=== PATIENT | female | born 1960 | race Caucasian/White ===

== ENCOUNTER 2019-12-08 16:04 | Emergency (ER) | payer OTHER ==
[~2019-12-08] VITALS: Ht 160 cm; Wt 112.9 kg
[2019-12-08 16:10] VITALS: BP 210/114; Ht 160 cm; Wt 112.9 kg
== END 2019-12-08 18:05 | disposition home or self-care (01) ==
LOC: ED 16:04
DX: S52.501A Unspecified fracture of the lower end of right radius, initial encounter for closed fracture (principal); S52.601A Unspecified fracture of lower end of right ulna, initial encounter for closed fracture; S01.531A Puncture wound without foreign body of lip, initial encounter; W01.0XXA Fall on same level from slipping, tripping and stumbling without subsequent striking against object, initial encounter; Y93.89 Activity, other specified; Y92.89 Other specified places as the place of occurrence of the external cause; Y99.8 Other external cause status

== ENCOUNTER 2019-12-11 10:00 | Emergency (ER) | payer OTHER ==
[~2019-12-11] VITALS: Ht 160 cm; Wt 114.8 kg
[2019-12-11 10:06] VITALS: Ht 160 cm; Wt 114.8 kg
[2019-12-11 11:04] VITALS: BP 160/81
== END 2019-12-11 11:05 | disposition home or self-care (01) ==
LOC: ED 10:00
DX: M79.7 Fibromyalgia (principal); M32.9 Systemic lupus erythematosus, unspecified; E66.9 Obesity, unspecified; Z68.41 Body mass index [BMI] 40.0-44.9, adult; Z98.890 Other specified postprocedural states; Z90.710 Acquired absence of both cervix and uterus